=== PATIENT | female | born 1980 | race Caucasian/White ===

== ENCOUNTER 2016-09-02 10:33 | Inpatient (IN) | payer OTHER ==
[~2016-09-02] VITALS: Ht 139.7 cm; Wt 41.0 kg
[~2016-09-02 10:33] MED LIST: RISPERDAL0.5 M1 PO
--- NOTE | 2016-09-02 10:44 | NUR ---
PT TO TRIAGE, STATES THAT SHE HAS BEEN HEARING VOICES FOR MONTHS, WAS DIAGNOSED BIPOLAR AND DOES NOT TAKE ANY MEDS. SPOUSE STATES THAT SHE FLUSHED THEM DOWN THE TOILET AFTER SHE WENT HOME WITH THEM. PT COMPLAINS THAT THE VOICES ARE TELLING HER GOOD AND BAD STUFF, DENIES SI OR HI.
--- NOTE | 2016-09-02 10:59 | NUR ---
SECURITY WANDED PT AND CHANGED INTO BLUE SCRUBS 1 BELONGING BAG LOCKED IN CLOSET NO VALUABLES GIVEN TO PT'S URINE SPECIMEN OBTAINED
--- NOTE | 2016-09-02 11:12 | NUR ---
PT SITTING IN ROOM WITH FAMILY PRESENT CALM, COOPERATIVE. RAPID SPEECH NOTED. URINE SAMPLE SENT. PT AWARE SHE IS WAITING FOR EVAL.
--- NOTE | 2016-09-02 11:14 | ED PSYCHIATRIC COMPLAINT ---
History of Present Illness General Chief Complaint: Psychiatric Related Complaint Stated Complaint: HEARING VOICES,MATIAS,TROUBLE SLEEPING,BODY PAIN Source: patient Exam Limitations: no limitations Vital Signs & Intake/Output Vital Signs & Intake/Output Vital Signs Date Time Temp Pulse Resp B/P Pulse O2 O2 Flow FiO2 Ox Delivery Rate 09/02 1940 97.3 69 130/72 09/02 1732 97.4 71 104/60 09/02 1628 97.3 64 18 110/70 100 Room Air 09/02 1322 97.5 64 18 113/67 100 Room Air 09/02 1114 99 Room Air 09/02 1039 98.2 94 18 123/78 98 Room Air Allergies Coded Allergies: No Known Allergies (10/16/15) Reconcile Medications Risperidone (Risperdal) 0.5 MG TABLET 1 TAB PO BID schizoaffective disorder Triage Note: PT TO TRIAGE, STATES THAT SHE HAS BEEN HEARING VOICES FOR MONTHS, WAS DIAGNOSED BIPOLAR AND DOES NOT TAKE ANY MEDS. SPOUSE STATES THAT SHE FLUSHED THEM DOWN THE TOILET AFTER SHE WENT HOME WITH THEM. PT COMPLAINS THAT THE VOICES ARE TELLING HER GOOD AND BAD STUFF, DENIES SI OR HI. Triage Nurses Notes Reviewed? yes Onset: Gradual Duration: worse persistent since (1 month) Timing: recent history Severity: severe : No Patient currently breastfeeds: No HPI: Patient is a 36-year-old female presenting to the emergency department with family member chief complaint of hallucinations, anxiety that then worsening over the past several weeks. Per family member this has been going on for the past several months. Patient decided not to take her bipolar medications when she was prescribed L and upper abdominal toilet. Patient denies any suicidal or homicidal ideation. She reports that her hallucinations are both visual and auditory. They do not tell her anything specific . (ERICKA KINNEY) Past History Travel History Traveled to [place] past 21 day No Medical History Any Pertinent Medical History? see below for history Neurological: seizure EENT: NONE Cardiovascular: NONE Respiratory: NONE Gastrointestinal: GERD Hepatic: NONE Renal: NONE Musculoskeletal: NONE Psychiatric: bipolar disease Endocrine: NONE Blood Disorders: NONE Cancer(s): NONE Surgical History Surgical History: Psychosocial History Who do you live with Family What is your primary language Mongolian Tobacco Use: Never used ETOH Use: denies use Illicit Drug Use: denies illicit drug use Family History Hx Contributory? No (ERICKA KINNEY) Review of Systems Review of Systems Constitutional: Reports: no symptoms. Comments Review of systems: See HPI, All other systems negative. Constitutional, no chills fever or weight loss HEENT: No visual changes no sore throat no congestion Cardiovascular: No chest pain Skin, no jaundice no rashes Respiratory: No dyspnea cough sputum or hemoptysis GI: No nausea no vomiting : No dysuria No hematuria Muscle skeletal: no back pain, no neck pain, Neurologic: No numbness Psych: pos stress, anxiety Heme/endocrine: No bruising no bleeding no polyuria or polydipsia Immunology: No splenectomy or history of AIDS (ERICKA KINNEY) Physical Exam Physical Exam General Appearance: well developed/nourished, no apparent distress, alert, awake , comfortable Neurological/Psychiatric: no motor/sensory deficits, oriented x 3 Comments: Well-developed well-nourished person in no acute distress HEENT: Pupils equally round and reactive to light and accommodation. Nose is atraumatic. Neck: normal inspection Back: Nontender Cardiovascular: Regular rate and rhythms no murmurs rubs or gallops, normal JVP Respiratory:. No respiratory distress Extremity: No edema Neuro: Alert oriented x3 Skin: No appreciable rash on exposed skin, skin is warm and dry. Psych: Hallucinating SAD PERSONS Done? patient not suicidal (ERICKA KINNEY) Progress Differential Diagnosis: electrolyte abnormality Plan of Care: Orders Procedure Date/time Status Regular Diet 09/02 D Active Vital Signs 09/02 1732 Active Inpt Psych Teach/Educate 09/02 1732 Active Nutritional Intake, Monitor 09/02 1732 Active Inpt Psych Auricular Acupunctu 09/02 1732 Active Admit to inpatient 09/02 1718 Active Add-on Test (ER Only) 09/02 1656 Active Lab Add-on Test 09/02 1555 Active Patient Data - inpatient psych 09/02 1551 Active Admit to inpatient psych 09/02 1551 Active LIPID PANEL 09/02 1150 Active GLYCOSYLATED HGB 09/02 1150 Active Intake & Output 09/02 1113 Complete TSH REFLEX 09/02 1113 Active COMPREHENSIVE METABOLIC PANEL 09/02 1113 Active CBC WITHOUT DIFFERENTIAL 09/02 1113 Complete ED CRISIS PSYCH CONSULT 09/02 1113 Active CULTURE,URINE 09/02 1108 Active URINE 09/02 1104 Complete URINE DRUG SCREEN FOR ER ONLY 09/02 1104 Complete URINALYSIS 09/02 1104 Complete Vital Signs 09/02 UNK Complete Nursing Misc 09/02 UNK Active Alternative Nursing Therapy 09/02 UNK Active Activity/Ambulation 09/02 UNK Active Current Medications Sig/Rancho Start time Last Medication Dose Stop Time Status Admin Acetaminophen 650 MG Q6P PRN 09/02 1600 AC (Tylenol) Al Hydroxide/Mg 30 ML Q4-6 PRN PRN 09/02 1600 AC Hydroxide (Maalox Plus) Gabapentin 300 MG Q6P PRN 09/02 1600 AC (Neurontin) Magnesium Hydroxide 30 ML AT BEDTIME PRN 09/02 1600 AC (Milk Of Magnesia) Trazodone HCl 50 MG AT BEDTIME NEED.. 09/02 1600 AC (Desyrel) Laboratory Tests 09/02/16 1326: CBC w Diff NO MAN DIFF REQ, RBC 3.87 L, MCV 83.4, MCH 27.3, RDW 13.9, MPV 8.3, Gran % 53.2, Lymphocytes % 34.1, Monocytes % 10.0 H, Eosinophils % 2.0, Basophils % 0.7, Absolute Granulocytes 2.0, Absolute Lymphocytes 1.3, Absolute Monocytes 0.4, Absolute Eosinophils 0.1, Absolute Basophils 0, PUBS MCHC 32.7 L 09/02/16 1150: Anion Gap 14, Estimated GFR > 60, BUN/Creatinine Ratio 15.7, Glucose 67, Hemoglobin A1c Pending, Calcium 9.3, Total Bilirubin 0.5, AST 20, ALT 17, Alkaline Phosphatase 41, Total Protein 7.5, Albumin 4.5, Globulin 3.0, Albumin/ Globulin Ratio 1.5, Triglycerides 41, Cholesterol 162, LDL Cholesterol, Calc 90, HDL Cholesterol 64 H, Cholesterol/HDL Ratio 3, TSH &T3 &Free T4 Intrp 1.040 09/02/16 1108: Urine Opiates Screen < 100.00, Methadone Screen 51, Barbiturate Screen < 60, Ur Phencyclidine Scrn < 6.00, Amphetamines Screen < 100, U Benzodiazepines Scrn < 85, Urine Cocaine Screen < 50, Urine Cannabis Screen < 5.00, Urine Color YEL, Urine Clarity HAZY H, Urine pH 6.0, Ur Specific [place] >= 1.030, Urine Protein NEG, Urine Ketones NEG, Urine Nitrite POS H, Urine Bilirubin NEG, Urine Urobilinogen 0.2, Ur Leukocyte Esterase NEG, Ur Microscopic SEDIMENT EXAMINED, Urine RBC 3-5, Urine WBC 1-3 H, Ur Epithelial Cells MOD H, Urine Crystals 3+ CA OX H, Urine Bacteria MANY H, Urine Mucus MANY H, Urine Hemoglobin MOD H, Urine Glucose NEG, Urine Test NEGATIVE Microbiology 09/02 1555 URINE ROUT: Urine Culture - CAN Cancelled: DUPLICATE ORDER 09/02 1108 URINE ROUT: Urine Culture - RECD Comments: Patient will be admitted for psychosis. (ERICKA KINNEY) Departure Departure Time of Disposition: 1605 Disposition: STILL A PATIENT Condition: Stable Clinical Impression Primary Impression: Psychotic disorder Qualifiers: Psychosis type: unspecified psychosis type Qualified Code: F29 - Unspecified psychosis not due to a substance or known physiological condition Referrals: PATIENT HAS NO PRIMARY CARE DR (PCP/Family) Departure Forms: Customer Survey General Discharge Information Psych Admission Note Psychiatric Admission: I have seen and evaluated MARCELLO COELLO. I have also reviewed all the pertinent lab results and diagnostic results. MARCELLO COELLO will be admitted to our inpatient Psychiatric unit for treatment and care. (ERICKA KINNEY) PA/BUCKLE ASSEMBLER Co-Sign Statement Statement: ED Attending supervision documentation- [X] I saw and evaluated the patient. I have also reviewed all the pertinent lab results and diagnostic results. I agree with the findings and the plan of care as documented in the PA's/BUCKLE ASSEMBLER's documentation. [] I have reviewed the ED Record and agree with the PA's/BUCKLE ASSEMBLER's documentation. [] Additions or exceptions (if any) to the PAs/BUCKLE ASSEMBLER's note and plan are summarized below: [] (MIKA BISHOP DO)
--- NOTE | 2016-09-02 11:56 | NUR ---
LAV AND SST SENT AT 1155
--- NOTE | 2016-09-02 12:01 | NUR ---
NORMAN SAMUELS AT BEDSIDE AT THIS TIME
--- NOTE | 2016-09-02 13:30 | NUR ---
LAV TOP REDRAWN AND SENT AT [id number]
[2016-09-02 13:41] LABS: ABSOLUTE BASOPHIL COUNT 0 /CUMM (0.0-0.2); ABSOLUTE EOSINOPHIL COUNT 0.1 /CUMM (0.0-0.7); ABSOLUTE LYMPH COUNT 1.3 /CUMM (1.2-3.4); ABSOLUTE MONOCYTE COUNT 0.4 /CUMM (0.10-0.60); BASOPHIL % 0.7 % (0.0-2.0); GRANULOCYTE % 53.2 % (42.2-75.2); HEMATOCRIT 32.3 % (37-47); MEAN CORPUSCULAR HGB 27.3 PG (27.0-31.0); MEAN CORPUSCULAR HGB CONC 32.7 G/DL (33.0-37.0); MEAN CORPUSCULAR VOLUME 83.4 FL (81.0-99.0); MEAN PLATELET VOLUME 8.3 FL (7.4-10.4); PLATELET COUNT 252 /CUMM (130-400); RBC DISTRIBUTION WIDTH 13.9 % (11.5-14.5); RED BLOOD CELL CT 3.87 /CUMM (4.20-5.40); WHITE BLOOD CELL COUNT 3.9 /CUMM (4.8-10.8)
--- NOTE | 2016-09-02 14:36 | NUR ---
RESTING WITH FAMILY AWAITING CRISIS
--- NOTE | 2016-09-02 15:55 | NUR ---
PHARMACY CALLED FOR RISPERIDONE ORDER, STATES THEY WILL HAVE IT READY SHORTLY
--- NOTE | 2016-09-02 16:28 | ED PSYCH CRISIS CONSULTATION ---
Crisis Consult Basic Assessment Date of Consult: 09/02/16 Responsible Person/Accompanied By: with her family Insurance Authorization: Insurance #1: Insurance name: ELIEZER Healy [employer]&A Phone number: Policy number: [id number] Group number: Authorization number: MARCELLO COCHRAN [id number] 1980 MARCELLO COCHRAN [id number] Pended Authorization # Client Authorization # Type of Request [id number] INITIAL ED Provider: Patient's ED Provider: ERICKA KINNEY Primary Care Physician: Patient's PCP: PATIENT HAS NO PRIMARY CARE DR PCP's Phone Number: Current Psychiatrist: None Chief Complaint: Psychiatric Related Complaint Patient's Quote: "Im hearing telepathic communications". Present Illness: Pt is a 36 year old female, she states about a year ago she began to hear voices , in fact she came to our ER, and was given a referral for IOP, she did not attend the appointment. Her offers she was at another hospital in [place] shortly after that, but it was unclear if she was admitted, although he states she was given medication and when she came home she flushed it down the toilet. Pt has not had any treatment since. She arrives today describing voices in her head, they are conflicted and making her "angry", she can have some eye contact but otherwise is preoccupied. She denies si/hi. She states she hears "telepathic communcations", and sees lights. She states this is distressing to her, and consumes a lot of her day. She has 3 children and has been 17 years, her and Mother are present and supportive. mentions she "is so quiet at home, and her head and back hurt often that she lays down". Pt denies drug and etoh history. Pt reports poor sleeping and eating habits. Pt is agreeable to inpatient level of care. Pt currently has no outpatient treaters and is not on medications. Patient's Address: [address] [place] [address] Other Phone Number: Who Do You Live With? Family Family/Informants Interviewed: Yadye her wants her inpatient and interested in how to help her maintain medications upon discharge. Allergies - Coded Allergies: No Known Allergies (10/16/15) Current Medications - Scheduled Medications Risperidone (Risperdal) 0.5 MG TABLET 1 TAB PO BID schizoaffective disorder # 10 TAB Prescribed by DYLON CORNELL MD on 10/17/15 Laboratory Results: Laboratory Tests 09/02/16 1326: CBC w Diff NO MAN DIFF REQ, RBC 3.87 L, MCV 83.4, MCH 27.3, RDW 13.9, MPV 8.3, Gran % 53.2, Lymphocytes % 34.1, Monocytes % 10.0 H, Eosinophils % 2.0, Basophils % 0.7, Absolute Granulocytes 2.0, Absolute Lymphocytes 1.3, Absolute Monocytes 0.4, Absolute Eosinophils 0.1, Absolute Basophils 0, PUBS MCHC 32.7 L 09/02/16 1150: Anion Gap 14, Estimated GFR > 60, BUN/Creatinine Ratio 15.7, Glucose 67, Hemoglobin A1c Pending, Calcium 9.3, Total Bilirubin 0.5, AST 20, ALT 17, Alkaline Phosphatase 41, Total Protein 7.5, Albumin 4.5, Globulin 3.0, Albumin/ Globulin Ratio 1.5, Triglycerides Pending, Cholesterol Pending, LDL Cholesterol, Calc Pending, HDL Cholesterol Pending, Cholesterol/HDL Ratio Pending, TSH &T3 & Free T4 Intrp 1.040 09/02/16 1108: Urine Opiates Screen < 100.00, Methadone Screen 51, Barbiturate Screen < 60, Ur Phencyclidine Scrn < 6.00, Amphetamines Screen < 100, U Benzodiazepines Scrn < 85, Urine Cocaine Screen < 50, Urine Cannabis Screen < 5.00, Urine Color YEL, Urine Clarity HAZY H, Urine pH 6.0, Ur Specific [place] >= 1.030, Urine Protein NEG, Urine Ketones NEG, Urine Nitrite POS H, Urine Bilirubin NEG, Urine Urobilinogen 0.2, Ur Leukocyte Esterase NEG, Ur Microscopic SEDIMENT EXAMINED, Urine RBC 3-5, Urine WBC 1-3 H, Ur Epithelial Cells MOD H, Urine Crystals 3+ CA OX H, Urine Bacteria MANY H, Urine Mucus MANY H, Urine Hemoglobin MOD H, Urine Glucose NEG, Urine Test NEGATIVE Microbiology 09/02 1555 URINE ROUT: Urine Culture - ORD Past History Past Medical History Neurological: seizure EENT: NONE Cardiovascular: NONE Respiratory: NONE Gastrointestinal: GERD Hepatic: NONE Renal: NONE Musculoskeletal: NONE Psychiatric: psychosis Endocrine: NONE Blood Disorders: NONE Cancer(s): NONE Past Surgical History Surgical History: Psychosocial History Strengths/Capabilities: no prior psych hx/ mother of 3/supportive family Psychiatric Treatment History Psych Treatment Psychiatric Treatment No Diagnosis by History: schizoaffective d/o Substance Use/Abuse History Drug Use/Abuse Substances Used/Abused No Substance Abuse Treatment Substance Abuse Treatment Past Substance Abuse [place] No Comments: Pt can not identify any levels of psychiatric levels of care she has participated in. Current Mental Status Mental Status Orientation: Person, Place, Situation Affect: Anxious, Variable Speech: Mumbled, Perseveration, Soft Neuro-vegetative: Appetite Decreased, Concentration Poor, Energy Decreased, Helpless, Loss of Interest, Sleep Disturbance Appearance Appearance- Dress/Hygiene: groomed, in hopsital attire. Behaviors Thought Process: Disorganized Thought Content: Auditory Hallucinations, Paranoid, Visual Hallucinations Memory: WNL Insight: Poor SI/HI Risk Assessment Past Suicidal Ideation/Attempts No Current Suicidal Ideation/Att No Past Homicidal Ideation/Att: No Current Homicidal Ideation/Attempts No Degree of Intent: None Risk Factors: high anxiety/distress Lethality Ratin (mild) PTSD Checklist PTSD Done? patient declined ED Management Sitter: Yes Restraints: No DSM5/PS Stressors/Medical Prob Diagnosis' (DSM 5, Stressors, Medical): F23 Brief Psychosis D/O R/O Schizoaffective D/O Current GAF: 24 Departure Disposition Psych Medical Clearance Date: 09/02/16 Medically Cleared at: 1530 Time Started: 1530 Time Ended: 1630 Psychiatrist Consulted: Trell Mercado MD Date Disposition Established: 09/02/16 Time Disposition Established: 1641 Plan for Disposition - Modality: Inpatient Psychiatry Facility: [facility] Follow-up Appt Date: 09/02/16 Follow-Up Appt Time: 164 Contact: [facility] Telephone: [phone] Rationale for Disposition: Consulted with Dr. Mercado, pt in distress and hearing AH. Wants to start medication and needs further support. Pt to be admitted to [facility]. Type of IP Admission: Voluntary Referrals PATIENT HAS NO PRIMARY CARE DR (PCP/Family)
--- NOTE | 2016-09-02 16:46 | IP CRISIS DIAG ASSESS PSYCH ---
Diagnostic Assessment Basic Assessment Insurance Authorization: Insurance #1: Insurance name: ELIEZER Healy [employer] [facility] Phone number: Policy number: [id number] Group number: Authorization number: MARCELLO COCHRAN [id number] 1980 MARCELLO COCHRAN [id number] Pended Authorization # Client Authorization # Type of Request [id number] INITIAL Primary Care Physician: Patient's PCP: PATIENT HAS NO PRIMARY CARE DR PCP's Phone Number: Patient's Quote: "Im hearing telepathic communications". Present Illness: Pt is a 36 year old female, she states about a year ago she began to hear voices , in fact she came to our ER, and was given a referral for IOP, she did not attend the appointment. Her offers she was at another hospital in [place] shortly after that, but it was unclear if she was admitted, although he states she was given medication and when she came home she flushed it down the toilet. Pt has not had any treatment since. She arrives today describing voices in her head, they are conflicted and making her "angry", she can have some eye contact but otherwise is preoccupied. She denies si/hi. She states she hears "telepathic communcations", and sees lights. She states this is distressing to her, and consumes a lot of her day. She has 3 children and has been 17 years, her and Mother are present and supportive. mentions she "is so quiet at home, and her head and back hurt often that she lays down". Pt denies drug and etoh history. Pt reports poor sleeping and eating habits. Pt is agreeable to inpatient level of care. Pt currently has no outpatient treaters and is not on medications. Patient's Address: [address] [place] [address] Other Phone Number: Who Do You Live With? Family Feel Safe Where You Live? Yes Feel Safe in Your Relationship Yes Marital Status: Do You Have Children? Yes Ages? 15,14,and 9 Primary Language? Mongolian Language(s) Spoken At Home: Mongolian Family/Informants Interviewed: Piter her wants her inpatient and interested in how to help her maintain medications upon discharge. Allergies - Coded Allergies: No Known Allergies (10/16/15) Current Medications - Scheduled Medications Risperidone (Risperdal) 0.5 MG TABLET 1 TAB PO BID schizoaffective disorder # 10 TAB Prescribed by DYLON CORNELL MD on 10/17/15 Consequences of Psych Med Use: pt is not med compliant, and has no hx with medications Lab Results: Laboratory Tests 09/02/16 1326: CBC w Diff NO MAN DIFF REQ, RBC 3.87 L, MCV 83.4, MCH 27.3, RDW 13.9, MPV 8.3, Gran % 53.2, Lymphocytes % 34.1, Monocytes % 10.0 H, Eosinophils % 2.0, Basophils % 0.7, Absolute Granulocytes 2.0, Absolute Lymphocytes 1.3, Absolute Monocytes 0.4, Absolute Eosinophils 0.1, Absolute Basophils 0, PUBS MCHC 32.7 L 09/02/16 1150: Anion Gap 14, Estimated GFR > 60, BUN/Creatinine Ratio 15.7, Glucose 67, Hemoglobin A1c Pending, Calcium 9.3, Total Bilirubin 0.5, AST 20, ALT 17, Alkaline Phosphatase 41, Total Protein 7.5, Albumin 4.5, Globulin 3.0, Albumin/ Globulin Ratio 1.5, Triglycerides 41, Cholesterol 162, LDL Cholesterol, Calc 90, HDL Cholesterol 64 H, Cholesterol/HDL Ratio 3, TSH &T3 &Free T4 Intrp 1.040 09/02/16 1108: Urine Opiates Screen < 100.00, Methadone Screen 51, Barbiturate Screen < 60, Ur Phencyclidine Scrn < 6.00, Amphetamines Screen < 100, U Benzodiazepines Scrn < 85, Urine Cocaine Screen < 50, Urine Cannabis Screen < 5.00, Urine Color YEL, Urine Clarity HAZY H, Urine pH 6.0, Ur Specific [place] >= 1.030, Urine Protein NEG, Urine Ketones NEG, Urine Nitrite POS H, Urine Bilirubin NEG, Urine Urobilinogen 0.2, Ur Leukocyte Esterase NEG, Ur Microscopic SEDIMENT EXAMINED, Urine RBC 3-5, Urine WBC 1-3 H, Ur Epithelial Cells MOD H, Urine Crystals 3+ CA OX H, Urine Bacteria MANY H, Urine Mucus MANY H, Urine Hemoglobin MOD H, Urine Glucose NEG, Urine Test NEGATIVE Microbiology 09/02 1555 URINE ROUT: Urine Culture - ORD Toxicology Screen Completed? Yes Results: negative Symptoms of Use: n/a Past History Past Surgical History Surgical History non-contributory Abuse/Trauma History Trauma History/Current Trauma: Denies Legal History Current Legal Status: none Have you ever been arrested? No Psychosocial History Strengths/Capabilities: no prior psych hx/ mother of 3/supportive family Psychiatric Treatment History Psych Treatment Psychiatric Treatment No Diagnosis by History: schizoaffective d/o Risk Factors: high anxiety/distress Substance Use/Abuse History Drug Use/Abuse minimum 12mo Hx Substances Used/Abused No Substance Abuse Treatment Substance Abuse Treatment Past Substance Abuse [place] No Sexual History Sexually Active No # of partners 1 Sexual Orientation Heterosexual Use of Protection No Sexual Concerns: not currently sexually active Education History Highest Level of Education: did not complete HS Preferred Learning Style: experiential Current Mental Status Mental Status Orientation: Person, Place, Situation Affect: Anxious, Variable Speech: Mumbled, Perseveration, Soft Neuro-vegetative: Appetite Decreased, Concentration Poor, Energy Decreased, Helpless, Loss of Interest, Sleep Disturbance Appearance Appearance- Dress/Hygiene: groomed, in hopsital attire. Behaviors Thought Process: Disorganized Thought Content: Auditory Hallucinations, Paranoid, Visual Hallucinations Memory: WNL Insight: Poor SI/HI Risk Assessment - Minimum 6mo History- Past Suicidal Ideation/Attempts No Current Suicidal Ideation/Att No Past Homicidal Ideation/Att: No Current Homicidal Ideation/Attempts No Degree of Intent: None Risk Factors: high anxiety/distress Lethality Ratin (mild) Needs/Init [place] Plan/Goals: Med manangement inpatient milieu AUDIT-C Questionnaire: AUDIT-C Questionnaire: Response Value ETOH use in the past year Never 0 # drinks typical/day Doesn't Drink 0 6 or > drinks per occasion Never 0 Total 0 DSM5/PS Stressors/Medical Prob Diagnosis' (DSM 5, Stressors, Medical): F23 Brief Psychosis D/O R/O Schizoaffective D/O Current GAF: 24
--- NOTE | 2016-09-02 16:46 | SOCIAL WORKER SOCIAL HX PSYCH ---
Social History Basic Assessment Insurance Authorization: Insurance #1: Insurance name: ELIEZER Healy Lem[employer] Phone number: Policy number: [id number] Group number: Authorization number: Curr Source of Income/Entitlements: Medicaid Primary Care Physician: Patient's PCP: PATIENT HAS NO PRIMARY CARE DR PCP's Phone Number: Primary Language? Slovenian Language(s) Spoken At Home: Slovenian, [place] Living Situation Rents or Owns Home? rents Feel Safe Where You Are Living Yes Feel Safe in Relationships? Yes Comments: feels safe, but is not functioning very well. Allergies - Coded Allergies: No Known Allergies (10/16/15) Current Medications - Scheduled Medications Risperidone (Risperdal) 0.5 MG TABLET 1 TAB PO BID schizoaffective disorder # 10 TAB Prescribed by DYLON CORNELL MD on 10/17/15 Last Taken: At an unknown date and time Consequences of Psych Med Use: n/a Past History Past Medical History Neurological: seizure EENT: NONE Cardiovascular: NONE Respiratory: NONE Gastrointestinal: GERD Hepatic: NONE Renal: NONE Musculoskeletal: NONE Psychiatric: psychosis Endocrine: NONE Blood Disorders: NONE Cancer(s): NONE Past Surgical History Surgical History: /Family History Place/Country of Origin: [facility], moved to at age of 14, raised in [facility], and came to [place] a few months ago. Childhood Family Constellation: Parents 2 brothers 3 sisters Primary Childhood Caretakers: father, mother Family Life During Childhood: good, normal DCF Involvement? No Mother's Age (Current/): 65 Relationship w/Mother: close Father's Age (Current/): 66 Relationship w/Father: good normal Any Sibling(s)? Yes Sibling's Gender(s)/Age(s): male Sibling 1:, male Sibling 2:, female Sibling 3:, female Sibling 4:, female Sibling 5: Relationship w/Sibling(s): good, pt does not elaborate Relationship w/Friends: denies having friendships Family Psych/Sub Abuse/Add Hx: drug of choice (denies) Number of Pregnancies: 3 Number of Miscarriages: 0 Number of Abortions: 0 Abuse/Trauma History Trauma History/Current Trauma: Denies Legal History Legal Guardian/Address/Phone: herself Current Legal Status: none Pending Court Dates: n/a Number of Arrests: 0 Hx of Juvenile Legal Charges? No Hx of Adult Legal Charges? No Psychosocial History Primary Support System: , mother Strengths/Capabilities: no prior psych hx/ mother of 3/supportive family Weaknesses: has not complied with tx thus far, may be scared and unknowledgable Last Physical: unknown History of Seizures? No History of Blackouts? Yes Last Blackout: unknown ADL Limitations: denies [place]/Social/Peer Relations limited, pt has family involvment and isolates often Meaningful Activities: being with kids Childhood Mormonism: no protestant stated Current Catholic Affiliation: no protestant stated Is Spirituality Important to You? unknown Patient's Ethnicity: [place] Cultural/Ethnic Issues: denies Are There Developmental Issues? No Milestones Achieved: fine motor, gross motor Psychiatric Treatment History Psych Treatment Inpatient Treatment No Precipitating Factors: ah Current Federal Court Of Appeals Law Clerk: none Treatment of Prior Episodes: 0 Diagnosis: schizoaffective d/o Psychodynamic Issues: pt isolates and has a supportive family, they be tentative to trusting this process as it is new to them Risk Factors: high anxiety/distress Substance Use/Abuse History Drug Use/Abuse Substance Used/Abused No History Explain: no drug/etoh hx Explain: no drug/etoh hx Have You Ever Attended AA? No Do You Attend AA Currently? No Do You Have a Sponsor? 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 No Current Mental Status Mental Status Affect: Anxious, Variable Speech: Mumbled, Perseveration, Soft Neuro-vegetative: Appetite Decreased, Concentration Poor, Energy Decreased, Helpless, Loss of Interest, Sleep Disturbance Appearance Appearance- Dress/Hygiene: groomed, in hopsital attire. Behaviors Thought Process: Disorganized Thought Content: Auditory Hallucinations, Paranoid, Visual Hallucinations Memory: WNL Insight: Poor SI/HI Risk Assessment Past Suicidal Ideation/Attempts No Current Suicidal Ideation/Att No Past Homicidal Ideation/Att: No Current Homicidal Ideation/Attempts No Degree of Intent: None Lethality Ratin (mild) - Conclusion and Recommendations for treatment - and discharge planning
--- NOTE | 2016-09-02 17:17 | NUR ---
REPORT CALLED TO KAI AT [facility], DISTRIBUTION CALLED, SITTERS INFORMED OF UPDATE, ONE OF THEM WILL ESCORT DISTRIBUTION AND SECURITY TO [place]
[2016-09-02 17:32] VITALS: BP 104/60
--- NOTE | 2016-09-02 17:53 | NUR ---
Patient admitted from ED. Patient calm and coherent with admission assessment. Patient currently denies SI/HI. Patient avoided eye contact at times during assessment. Patient is a poor and vague historian. PAtient utox + for methadone, patient denies taking on methadone or methadone maintenance Patient family requested to stay night, orient patient and family to visiting hours for the unit. Patient reports skin clean dry and intact. Patient is endorsing AH, but not currently. Patient says it happens at times. Patient reports looking forward to help. Looking forward assisting Zandra with mental health.
[2016-09-02 19:40] VITALS: BP 130/72
--- NOTE | 2016-09-03 06:27 | NUR ---
PATIENT SLEPT ALL NIGHT.
[2016-09-03 07:53] VITALS: BP 101/69
--- NOTE | 2016-09-03 10:52 | CPS MD/APRN INITIAL ASSE PSYCH ---
Psychiatric Admission [employer]'s Note Reviewed: Yes Patient Seen and Examined: Yes Identifying Information: Patient is a 36-year old Indian female. Chief Complaint: "I hear voices." Reaction to Hospitalization: "I don't need to be here, but I do want help with the voices" History of Present Illness Onset of Illness: The patient is a 36-year old , Indian, female with an unclear past psychiatric history. She reported hearing auditory hallucinations of telepathic voices approximately 1 year ago when she first presented to ED (10/15/16) for disorientation/auditory hallucinations, and was provided with a referral to [facility] which she didn't attend. Per Crisis collateral, the patient's reported that she had been to another hospital in [place], [place] shortly after then. It was unclear if the patient was admitted to inpatient psychiatry versus ED. She was provided with medication post-discharge which she flushed down the toilet. Prior to today's encounter the patient received Risperdal 1mg last evening and Risperdal 1mg this morning. She appeared sedated, and multiple times was observed with her eyes shut dosing off. She answered direct questions with frequent prompting. Unclear if there was thought blocking present versus psychomotor retardation from newly introduced Risperdal. The patient denied a prior history of suicidal ideation or suicide attempts. She denied a prior history of homicidal ideation. She reported a history of hearing vague voices (non-command in nature) and seeing lights. She could not describe the frequency of hallucinations. She was unable to describe if she hears 1 or more voices, or if male or female. She reported last hearing voice(s) last evening before receiving Risperdal at . She denied VH and AH this morning, since receiving Risperdal doses. She reported that prior to present hospitalization she had very low energy due to the voice(s) "draining all of the energy from me." She reported increased sleep and a decreased appetite. She denied acute symptoms of depression and reported anxiety secondary to AVH. She denied associated symptoms of chest pain or SOB from anxiety. She also reported somatic symptoms of headaches and back pain, but denied formal diagnoses of headaches or chronic pain. Circumstances Leading to Admission: Not engaged in outpatient psychiatric treatment; prior medication nonadherence; ? psychosocial stressors. Problem(s) Justifying Need for Admission: + Auditory and visual hallucinations; decreased appetite and increased sleep. Past Psychiatric History Past Diagnosis(es)- if any: Brief Psychosis D/O (F23) R/O Schizoaffective D/O Past Precipitating Factors- if any: Unknown - patient did not elaborate. - Include inpatient and outpatient treatment Treatment History: -? inpatient psych hospitalization versus ED hospitalization in [place], [place] ( 2015) - ED (10/2015) - disorientation/AH -Referred to IOP following 10/2015 ED visit however patient did not f/u. -No current outpatient psychiatric treatment History of Suicide Attempts or Gestures Pt denied. Substance Abuse History: Pt denied use of alcohol, illicits, and cigarettes. Allergies: Coded Allergies: No Known Allergies (10/16/15) Home Med List: OTC sleep aid (name unknown by pt) - Include any medical condition(s) that may - impact the patient's recovery/remission Past Medical History: Pt denied. Of note, in ED medical history - "seizures" were listed. Patient denied a history of Szs. Past History Medical History Neurological: seizure EENT: NONE Cardiovascular: NONE Respiratory: NONE Gastrointestinal: GERD Hepatic: NONE Renal: NONE Musculoskeletal: NONE Psychiatric: psychosis Endocrine: NONE Blood Disorders: NONE Cancer(s): NONE Surgical History Surgical History: non-contributory Psychiatric Family/Social Hx Family History Psychiatric Illness: Pt denied. Substance Use: Pt denied. Suicides: Pt denied. Other Family History: Patient is and has 3 children. Social History Living Situation: Patient lives with and 3 children. Significant Relationships (family/friends): Education: Did not graduate HS or obtain GED. Could not state grade she last attended. Vocation/Occupation: Unemployed. Legal: Pt denied. Other Social History: Patient moved from [facility] to [place], [place] at 14 years old. Has lived in [place] for approximately greater than 1 year with her and three children. Healthly Behaviors Screening Tobacco Screening Tobacco Use from ED Docu: Never used - If tobacco counseling indicated - the following topics are required. - #1 Recognizing dangerous situations. - #2 Coping Skills. - #3 Basic information about quitting. Status of Tobacco Cessation Counseling: N/A B/C NO TOB USE Cessation Med Status: No Tobacco Use last 30d Alcohol Screening - ETOH screen POS if BAL >=80 or Audit-C>= M4/F3 Audit-C Score from Diag Assess: 0 Blood Alcohol Level: BAL not tested in ED. Alcohol Use Screening Results: Neg per Audit C &/or BAL - If ETOH counseling indicated - the following topics are required. - #1 Express concern about the patient's - drinking at unhealthy levels, include informing - of national norms for moderate drinking: - men <= 14 drinks/week, max 4 drinks/occasion - women <= 7 drinks/week, max 3 drinks/occasion - #2 Providing feedback, including linking alcohol to - negative physical effects (liver injury, hypertension) - negative emotional effects (relationship problems and - depression) - negative occupational consequences (reduced work - performance) - #3 Advising the patient to abstain from alcohol or - to drink below national norms for moderate drinking - (as listed above). Status of ETOH Use Counseling: N/A B/C NO ETOH Use Metabolic Screening - Screen if on a Neuroleptic Medication - Metabolic screening should include: - Blood Pressure, BMI, Glucose or Hgb A1c, & a - Lipid profile from within the past 365 days. Metabolic Screening () Not Applicable, patient not on a neuroleptic. OR ([X]) Patient on a neuroleptic(s) . Enter below results for Glucose or Hemoglobin A1C, and lipid panel if obtained during the last 365 days. BMI: 21.000 Blood Pressure: 101/69 Laboratory Results (If applicable): Lab Cholesterol 162 MG/DL 09/02/16 1150 Cholesterol/HDL Ratio 3 % 09/02/16 1150 Glucose 67 mg/dL 09/02/16 1150 HDL Cholesterol 64 mg/dL H 09/02/16 1150 LDL Cholesterol, Calc 90 mg/dL 09/02/16 1150 Triglycerides 41 mg/dL 09/02/16 1150 Exam and Plan Mental Status Examination Ambulation Status: Steady and idependent Appearance: 36 y/o Indian female, appears stated age. Petite stature, well-groomed. Dressed in blue paper scrub top and bottoms. Attitude towards examiner: Guarded, withdrawn, polite. Psychomotor activity: Psychomotor retardation (likely slowed from introduction of Risperdal). Behavior: Slowed, occasionally dosing off during interview. Quality of speech: Soft-spoken. Affect: Constricted Mood: "Alright." She denied acute symptoms of depression. Reported anxiety at baseline secondary to AH and VH. Denied feeling hopeless, helpless, worthless, guilty. Suicidal Ideation: Pt denied. Homicidal Ideation: Pt denied. Hallucinations: Pt denied at present. Last reported AH was last night prior to taking Risperdal at . Reported last VH of lights was in ED. Paranoid/Delusional Material: None overtly evident. Will require further assessment, and patient to be more alert to adequately assess. Difficulties with thought organization: Patient slowed, unclear if medication induced versus ? thought blocking. Insight: Fair Judgment: Limited Orientation: O x to person, place and time. Cognition: Grossly intact, however slowed. Memory Function: Grossly intact. Estimate of intellectual functioning: Likely average. Assets/Strengths Patient Identified Assets/Strengths: Supportive family, enjoys spending time with family. Showed fair insight into needing treatment. Impression/Plan Impression and Plan: Patient is a 36-year old Indian, female who is a mother of three who presented for the second time to ED with symptoms of AH and VH. Causes of symptoms are unclear, reported AH and VH have been ongoing for approx. 1 year, with no prior onset before then. She denied a history of trauma/physical, sexual , verbal, emotional abuse. Was a poor historian and unable to clarify if prior hospital visit in [place], [place] was for inpatient psychiatry versus ED psychiatry. Had been nonadherent with discharge medications at that time. Tolerating Risperdal 1mg BID thus far, denied acute SEs, however, appeared quite sedated during initial encounter which ? is related to Risperdal given history of being medication naive. Will decrease Risperdal from 1mg QAM to 0.5mg QAM and continue Risperdal 1mg QHS for AH/VH. Presently patient denied acute symptoms of anxiety and depression. Deneid current SI/HI/AH/VH. Will monitor patient on unit for safety, suicidal ideation, mood and psychosis. Will continue medications as indicated above. - Include all active medical diagnosis that require tx DSM 5 Diagnosis(es): Unspecified psychosis (F28) - Initial Tx Plan for Active Psych & Medical Conditions Treatment Plan: 1. Monitor the patient on unit for safety, suicidal ideation, mood and psychosis. 2. Obtain collateral from patient's family. 3. Decrease Risperdal from 1mg QAM to 0.5mg QAM d/t sedation. Continue Risperdal 1mg QHS for AH/VH. 4. Once psychiatric symptoms are clinically stable, refer to an appropriate level of outpatient psychiatric care. 5. Admission H&P per personal injury specialist team. - Factors that would help patient function - in a less restrictive setting. Factors: -Alleviation/stabilization of psychosis. - medication adherence. - outpatient treatment adherence.
--- NOTE | 2016-09-03 11:52 | SOCIAL WORKER PROG NOTE PSYCH ---
Social Work Progress Note Progress Note Pt is suspicious, and cooperative. This is a new environment for her. She was able to complete social, answering questions briefly. Pt reports the voices have lessen since medication started last night and this am.
[2016-09-03 12:17] VITALS: BP 108/68
--- NOTE | 2016-09-03 12:54 | NUR ---
Dr. Christina on unit for H&P, no further orders at this time.
--- NOTE | 2016-09-03 13:49 | NUR ---
PT WAS ON AND OFF IN THE MILIEU TODAY. SHE DID NOT EAT BREAKFAST OR LUNCH, STATING THAT SHE WAS NOT HUNGRY. PT WAS ENCOURAGED TO HAVE AT LEAST CRACKERS BUT PT DECLINED. SHE CAME TO SOME OF THE GROUPS TODAY, AND PARTICIPATED. SHE HAD SOME INTERACTIONS TODAY, BUT REALLY WANTS TO DISCHARGE. IN THE MILIEU PT HAS BEEN CALM AND COOPERATIVE, AND DENIES THOUGHTS TO HURT HERSELF WHEN ASKED.
--- NOTE | 2016-09-03 14:39 | History & Physical ---
General Information and HPI MD Statement: I have seen and personally examined MARCELLO COELLO and documented this H&P. The patient is a 36 year old F who presented with a patient stated chief complaint of "hearing voiced", insomnia, body pain. Source of Information: patient Exam Limitations: no limitations History of Present Illness: The patient is a 36 yo female with h/o schizoaffective disorder/bipolar who presented in the ED with c/o "hearing voices" and difficulty sleeping. She had been given medication as an outpatient, however had flushed it down the toilet per psych notes in ED. She was admitted to [facility]/Psychiatry for further evaluation. At the time of my exam the patient had no physical complaints. No chest pain, dyspnea, abd pain, etc. 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 NO SIGNIFICANT ILLNESSES IN FAMILY PER PATIENT). Psychosocial History Smoking Status: Never Smoked ETOH Use: denies use Illicit Drug Use: denies illicit drug use Functional Ability Ambulation: independent Employment History Employment Unemployed Review of Systems Review of Systems Constitutional: Denies: no symptoms. EENTM: Denies: no symptoms. Cardiovascular: Denies: no symptoms. Respiratory: Denies: no symptoms. GI: Denies: no symptoms. Genitourinary: Denies: no symptoms. Musculoskeletal: Denies: no symptoms. Skin: Denies: no symptoms. Neurological/Psychological: Denies: no symptoms. Hematologic/Endocrine: Denies: no symptoms. Immunologic/Allergic: Denies: no symptoms. Exam & Diagnostic Data Last 24 Hrs of Vital Signs/I&O Vital Signs Date Time Temp Pulse Resp B/P Pulse O2 O2 Flow FiO2 Ox Delivery Rate 09/03 1217 73 108/68 09/03 0753 96.8 63 101/69 09/02 1940 97.3 69 130/72 09/02 1732 97.4 71 104/60 03 1628 97.3 64 18 110/70 100 Room Air Intake & Output 09/03 1600 09/03 0800 09/03 0000 Intake Total Output Total Balance Patient 40.993 kg Weight Physical Exam General Appearance Alert, Oriented X3, Cooperative, No Acute Distress Skin No Rashes, No Breakdown, No Significant Lesion HEENT Atraumatic, PERRLA, EOMI, Mucous Membr. moist/pink Neck Supple, No JVD, No thryomegaly, +2 Carotid Pulse wo Bruit, No LAD Cardiovascular Regular Rate, Normal S1, Normal S2, No Murmurs Lungs Clear to Auscultation, Normal Air Movement Abdomen Normal Bowel Sounds, Soft, No Tenderness, No Hepatospenomegaly, No Masses Neurological Exam Findings: Normal Gait, Normal Speech, Strength at 5/5 X4 Ext, Normal Tone, Sensation Intact, Cranial Nerves 3-12 NL, Reflexes 2+ Cranial Nerves II through XII: INTACT Extremities No Clubbing, No Cyanosis, No Edema, Normal Pulses, No Tenderness/ Swelling Vascular Normal Pulses, Pulses Symmetrical Last 24 Hrs of Labs/Yemi: Microbiology 09/02 1555 URINE ROUT: Urine Culture - CAN Cancelled: DUPLICATE ORDER Assessment/Plan Assessment: #Psychosis- hearing voices per patient. Does have h/o schizoaffective/bipolar disorder. Plan: Admit to [facility]/Psychiatry for evaluation. Meds as per psychiatry. #GERD- no current symptoms. On no meds chronically. Plan: Will observe off of medications. As Ranked By This Provider Problem List: 1. Delirium 2. Psychotic disorder Qualifiers Psychosis type: unspecified psychosis type Qualified Code: F29 - Unspecified psychosis not due to a substance or known physiological condition 3. GERD (gastroesophageal reflux disease) Miscellaneous Miscellaneous Documentation Attending Case Discussed With: GAMAL AARON,MERON Primary Care Physician: PATIENT HAS NO PRIMARY CARE DR Patient sees these Specialists NONE Level of Patient Care: [facility] Consults Needed: Consulting Physician: NONE Attending MD Review Statement Attending Statement Attending MD Statement: examined this patient, reviewed EMR data (avail), discussed with nursing, amended to note Attending Assessment/Plan: The patient was seen and examined earlier today.
--- NOTE | 2016-09-03 15:03 | SOCIAL WORKER PROG NOTE PSYCH ---
Social Work Progress Note Progress Note Zandra has been quiet today, sitting to herself most of the day. She said she had a hard time falling asleep last night. Denies any auditory hallucinations today. Told me that she had been hearing voices for about a year and that she has taken medications in the past, but stopped taking them because she didn't feel that she needed them. She denies other symptoms of depression or anxiety. States her mood is good. She thinks that the voices are gone today, because she took the medication. She feels ready to leave the hospital and doesn't feel that she will need to be here past tomorrow. She lives at home with her and 3 children ages 9,14,& 15. I told her that I would like to have her in for a meeting. She asked why? So I explained that it was a meeting to support her and discuss her concerns and that we do this for all patients. She agreed. Zandra is of Arabic decent, she moved to the with [place] family in 1996. She shared that the only reason she came to the hospital is because her Mom wanted her to come. I asked what her Mother's concerns were? She told me that her Mom was worried about the stress that the voices were causing her. When asked what the voices say? She said statements like "Zandra is good, Zandra is bad". I talked to her about IOP. Initially she said she didn't think she would need to go. After more discussion she changed her mind and said it would be ok. I got the impression that she was agreeing just to leave the hospital sooner. I don't know what her committement is to treatment at this time. I explained that she can't take medication like headache medicine and only take it when she experiences the voices. Zandra's and I spoke. He will come in for a meeting tomorrow at 10: 30am. He was concerned that she didn't call him yet today. He was upset over the rules regarding the phone use. I explained that groups are part of treatment here and the phone is available when groups aren't in session. He asked me to remind her, because he didn't think she was aware. I let her know when the family meeting was planned for and told her that her seemed to want to hear from her.
--- NOTE | 2016-09-03 15:08 | SOCIAL WORKER TX PLAN PSYCH ---
Treatment Plan - Please Document: - Evidence that there is ongoing collaboration between - the patient and the interdisciplinary team, - including the patient's active participation and - responsibility for engaging in the treatment regimen, - and that the treatment plan is individualized and - relevant to the patient's conditions. - Treatment plan should reflect documentation indicating - that all active therapeutic efforts are included. Strengths/Capabilities: no prior psych hx/ mother of 3/supportive family Patient Identified Trmt Goals: "I don't want to hear voices" Discharge Plan: Raj[facility] GUTIÉRREZ Problem/Goals #1 Problem #1: psychosis Goal (Short Term): Patient will consider medications to help with her auditory hallucinations. Goal (Half-Way): Patient will stay on medications and in treatment in order to remain stable. Interventions: patient will be offered medication management with the FARM EQUIPMENT OPERATOR, groups on symptom management, coping skills, goals groups, focus groups, relaxation. Energy Project Engineer will assess symptoms daily, discuss pros and cons to medication compliance. Energy Project Engineer will hold family meeting and plan for aftercare. DSM5/PS Stressors/Medical Prob Diagnosis' (DSM 5, Stressors, Medical): F23 Brief Psychosis D/O R/O Schizoaffective D/O Current GAF: 24 Treatment Team - Responsibilities of members of the treatment team include: - Medication Management- MD or FARM EQUIPMENT OPERATOR - Medication Administration and Monitoring- Nurse - Group Therapy- Occupational Therapist - 1:1 Therapy,Disch Planning,family involvement-Energy Project Engineer
[2016-09-03 16:09] VITALS: BP 105/71
[2016-09-03 19:44] VITALS: BP 116/74
--- NOTE | 2016-09-03 21:08 | NUR ---
PT IS ISOLATIVE AND WITHDRAWN, STAYING IN PT ROOM ALL DAY. PT DID RECEIVE A VISIT FROM FAMILY, WHICH BROUGHT HER INTO MILIEU AND SEEMED TO MAKE HER HAPPY. MOOD IS STABLE, AFFECT IS SLIGHTLY CONSTRICTED, AT TIMES PRESENTING EUTHYMIC TO FULL RANGE, COMMUNICATION IS NORMAL, BUT SPARSE, AND APPETITE IS NORMAL. PT DENIES SI AT THIS TIME.
[2016-09-04 07:39] VITALS: BP 104/74
--- NOTE | 2016-09-04 10:42 | CP SOUTH PROGRESS NOTE PSYCH ---
See Addendum Psych (Inpt) Progress Note Progress Note Include the following elements, when applicable: Involvement in the active treatment of the patient with behavioral observations of the patient and the patient's response to the treatment. Review of the ongoing treatment process in the context of the treatment plan. Indication of how multi-disciplinary staff members are carrying out the treatment plan. Plans for future interventions and recommendations for revision of the treatment plan. Liaison with other physicians/providers. Progress Note: [I discussed this patient's progress to date, current mental status, treatment process in the context of the treatment plan, and discharge planning with staff/ team in the daily morning inpatient team meeting. I also met with the patient myself in individual session.] SUBJECTIVE: "I feel good. Much less voices." OBJECTIVE: Laboratory Tests 09/02/16 1326: CBC w Diff NO MAN DIFF REQ, RBC 3.87 L, MCV 83.4, MCH 27.3, RDW 13.9, MPV 8.3, Gran % 53.2, Lymphocytes % 34.1, Monocytes % 10.0 H, Eosinophils % 2.0, Basophils % 0.7, Absolute Granulocytes 2.0, Absolute Lymphocytes 1.3, Absolute Monocytes 0.4, Absolute Eosinophils 0.1, Absolute Basophils 0, PUBS MCHC 32.7 L 09/02/16 1150: Anion Gap 14, Estimated GFR > 60, BUN/Creatinine Ratio 15.7, Glucose 67, Hemoglobin A1c 5.2, Calcium 9.3, Total Bilirubin 0.5, AST 20, ALT 17, Alkaline Phosphatase 41, Total Protein 7.5, Albumin 4.5, Globulin 3.0, Albumin/Globulin Ratio 1.5, Triglycerides 41, Cholesterol 162, LDL Cholesterol, Calc 90, HDL Cholesterol 64 H, Cholesterol/HDL Ratio 3, TSH &T3 &Free T4 Intrp 1.040 09/02/16 1108: Urine Opiates Screen < 100.00, Methadone Screen 51, Barbiturate Screen < 60, Ur Phencyclidine Scrn < 6.00, Amphetamines Screen < 100, U Benzodiazepines Scrn < 85, Urine Cocaine Screen < 50, Urine Cannabis Screen < 5.00, Urine Color YEL, Urine Clarity HAZY H, Urine pH 6.0, Ur Specific [place] >= 1.030, Urine Protein NEG, Urine Ketones NEG, Urine Nitrite POS H, Urine Bilirubin NEG, Urine Urobilinogen 0.2, Ur Leukocyte Esterase NEG, Ur Microscopic SEDIMENT EXAMINED, Urine RBC 3-5, Urine WBC 1-3 H, Ur Epithelial Cells MOD H, Urine Crystals 3+ CA OX H, Urine Bacteria MANY H, Urine Mucus MANY H, Urine Hemoglobin MOD H, Urine Glucose NEG, Urine Test NEGATIVE Microbiology 09/02 1108 URINE ROUT: Urine Culture - COMP KLEBSIELLA PNEUMONIAE Current Medications Sig/Rancho Start time Last Medication Dose Route Stop Time Status Admin Acetaminophen 650 MG Q6P PRN 09/02 1600 AC PO Al Hydroxide/Mg 30 ML Q4-6 PRN PRN 09/02 1600 AC Hydroxide PO Gabapentin 300 MG Q6P PRN 09/02 1600 AC PO Magnesium Hydroxide 30 ML AT BEDTIME PRN 09/02 1600 AC PO Risperidone 0.5 MG 0800 09/04 0800 AC PO Risperidone 1 MG AT BEDTIME 09/03 2200 AC 09/03 PO 2203 Risperidone 1 MG BID 09/02 1552 DC 09/03 PO 1001 Trazodone HCl 50 MG AT BEDTIME NEED.. 09/02 1600 AC PO Vital Signs Date Time Temp Pulse Resp B/P Pulse O2 O2 Flow FiO2 Ox Delivery Rate 09/04 0739 96.5 104 104/74 09/03 1944 96.6 83 116/74 03 1609 83 105/71 03 1217 73 108/68 ASSESSMENT: Chart, progress notes, labs, VS, and medication list were reviewed. Urine culture (+) Klebsiella. Patient denied genitourinary/uti sx. Nursing spoke to customer service dispatcher Dr. Christina regarding (+) urine culture who will evaulate the need for tx. Met with patient this morning with her and June Merrill LCSW, for a family meeting. The patient's treatment progress to date, psychiatric history, medication regimen, level of safety, and discharge planning were reviewed with the patient. The patient's reported onset of AH since last year. He reported that in addition to intermittent AH, the patient also experienced poor eating habits, weight loss, and insomnia. He reported concerns about the patient remaining on prescribed Risperdal post-discharge, given past history of medication nonadherence and paranoia over medications. Risperdal BOYLE was reviewed at length with the patient and her . Expressed to patient that BOYLE could be administered Q2 weeks IM and would eliminate the need for her to remember taking medication daily. Patient resisted this option and reported she would be fine taking the medications by mouth. The patient was agreeable to having her administer prescribed Risperdal to her twice daily and assist with managing her medications. The patient's was also in favor of this plan. It was expressed to the patient and her that during IOP treatment course, if patient changed her mind she could be switched to Risperdal BOYLE. The patient and her both verbalized understanding of this. The patient was also agreeable to having her involved in her treatment during IOP. At the end of family meeting, nursing staff and nursing professor came into the meeting inform us that Zandra's Mother and Brother were outside asking to come in for the meeting. Both the patient and reported that wasn't necessary as we were ending the meeting. On encounter today, the patient presented more alert than yesterday and was oriented to person, place and time. Affect was constricted. Mood was "good." Eye contact was appropriate. She reported improved sleep and energy level. She reported getting her appetite back, and eating this morning. She reported AH were much quieter like "whispers" since starting Risperdal. She denied VH. Thought process was linear and goal-directed. Thought content was appropriate. There was no evidence of overt paranoia or delusions. Cognition was grossly intact. She denied passive and active suicidal ideation, plans and intent. She denied homicidal ideation. She reported tolerating medications well and denied untoward medications effects. There was no evidence of movement disorder. AIMS=0. Patient agreeable to continuing medication. PLAN: 1. Continue monitoring the patient on unit for safety, mood and AH/VH. 2. Continue Risperdal 0.5mg QAM and 1mg QHS for AH. Consider increasing AM Risperdal to 1mg over the weekend if continued AH. 3. Encourage participation in milieu activities. 4. Cover Mat Machine Operator Dr. Christina to f/u on (+) urine culture. 5. Likely discharge Wednesday with f/u at [facility].
--- NOTE | 2016-09-04 11:03 | SOCIAL WORKER PROG NOTE PSYCH ---
Social Work Progress Note Progress Note Zandra's came in for a family meeting today. He was very concerned and was a strong advocate in making sure that she was getting all the follow up and medical work up that she needs. Requesting and MRI and CAT Scan of her head. He wants to make sure that there is nothing causing voices medically. He believes she may have had an MRI at [place] a few months back. Agnes Whipple APRN told him she will look at the record and speak with the hospitalist if another one is needed. He confirmed Zandra's report that she has been experiencing voices for about a year on and off. He conveyed how difficult it was to get her to come in for treatment and wants to make sure that she is well before leaving. We talked alot about her medication compliance. The last time she was given medication she dumped them down the toilet because she didn't feel they were needed. She acknowledges that since her stay here the medication given has helped. She still seems to have some thoughts about when the voices stop she no longer needs the meds. We explained that it doesn't work like that and that she will need to remain consistent on the meds to prevent the voices from returning. Talked about an injection versus pills. She was informed by Agnes that she could opt to receive a 2 week injection of Risperdal if that was easier for her to remember. She ultimately decided not to receive the injection right now, but said she would consider it if the pills were a problem for her. She was strongly encouraged to think about it. Zandra's talked about how he wanted to take over as POA for her or conservator so that she didn't have any rights to refuse treatment and wants to be able to sign her in and out of the hospital. It was explained that if he went for these legal rights, it doesn 't mean that he can get her into and out of the hospital. Agnes also informed him that she probably would not meet criteria for conservatorship, as she is not a danger to herself, others, or gravely disabled right now. Discussed continued treatment at the IOP program and how she can continue to get the help and support she needs. Informed her that if all is well we will plan for discharge on Wednesday and that I would schedule an intake for the same day as discharge. Zandra seemed fine with the idea of staying over the weekend. I think she is starting to feel more comfortable here. She denies voices today. States her mood is good. Appetite is slowly improving and that she slept well last night. Her thought that she is starting to look better. At the end of the meeting, nursing came to the room to inform us that Zandra's Mother and Brother were outside asking to come in for the meeting. Both patient and didn't feel that was necessary as we were ending the meeting. Zandra asked me later if I could meet with her Mom. I told her we would need to ensure there is a release, but that I could not do it today and would be happy to meet with her and her Mom on Wednesday morning at 10:30am. IOP intake is tentatively sheduled for Wednesday at 12:45pm.
--- NOTE | 2016-09-04 11:18 | NUR ---
PT IS STABLE WITH EUTHYMIC AFFECT. PT IS ATTENDING GROUPS AND INTERACTING WITH PEERS/STAFF. PT HAD A FAMILY MEETING TODAY WITH HER . PT'S MOTHER/BROTHER ATTEMPTED TO COME ONTO THE UNIT AND WERE DEMANDING TO SPEAK WITH DOCTOR. THERE WAS NO RELEASE OF INFO FROM THE PT TO DISCUSS WITH MOTHER/BROTHER. SECURITY WAS CALLED DOWN TO SPEAK WITH THE MOTHER/BROTHER AFTER THEY REFUSED TO LEAVE. PT EVENTUALLY SIGNED A KT AND FARRAH FROST WILL SCHEDULE A FAMILY MEETING WITH MOTHER/BROTHER FOR WEDNESDAY. VS ARE STABLE AND DENIES ANY SI/HI TO THIS MHW.
--- NOTE | 2016-09-04 11:33 | NUR ---
PT IS CALM AND COOPERATIVE AT THIS TIME. SHE HAD A FAMILY MEETING TODAY AND IS TENTATIVELY SCHEDULED FOR D/C TO [facility] [place] WEDNESDAY. SHE DENIED SUICIDAL THOUGHTS WHEN ASKED.U/C WILL BE REPORTED TO DR WEAVER. PT DENIES ANY URINARY SYMPTOMS AND IS AFEBRILE
--- NOTE | 2016-09-04 11:46 | NUR ---
DR WEAVER RETURNED CALL AND WILL REVIEW U/C
[2016-09-04 12:25] VITALS: BP 107/67
[2016-09-04 16:10] VITALS: BP 113/71
--- NOTE | 2016-09-04 17:40 | PN- Att Addend ---
Attending Addendum Attending Brief Note Called for positive urine culture - Klebsiella > 100K. Was sent from ED. Urinalysis had only 1-3 WBC and the patient denies any urinary symptoms. #Asymptomatic Bacteruria- discussed with REGIONAL INTERMODAL TRUCK DRIVER. Unlikely to represent infection. Plan: No treatment elected.
[2016-09-04 19:33] VITALS: BP 104/73
--- NOTE | 2016-09-04 22:16 | NUR ---
PT IS CALM, COOPERATIVE WITH STAFF AND PEERS, AND COMPLIANT WITH UNIT RULES. PT APPEARS IN MILIEU FOR PERIODS OF TIME, BUT TENDS TO BE WITHDRAWN WHILE IN POPULATION, AND OFTEN ISOLATES IN PT ROOM. MOOD IS STABLE, AFFECT IS EUTHYMIC, COMMUNICATION IS NORMAL, AND APPETITE IS NORMAL. PT DENIES SI AT THIS TIME.
[2016-09-05 07:39] VITALS: BP 102/56
[2016-09-05 12:11] VITALS: BP 104/67
--- NOTE | 2016-09-05 14:38 | NUR ---
has been sitting in lounge, minimal interactions with peers or staff. did not go to group. Mood is stable, contricted affect. denied thoughts of self harm when asked.
[2016-09-05 16:02] VITALS: BP 112/65
--- NOTE | 2016-09-05 17:50 | CP SOUTH PROGRESS NOTE PSYCH ---
Psych (Inpt) Progress Note Progress Note The patient was seen for follow-up for unspecified psychotic disorder. She was seen individually and discussed with the nursing staff. According to the nursing staff she seems less internally preoccupied, more outside of her room, continuing to be mostly on her own. She wanted her mother to be present during the interview. They both expressed concern relative to brain imaging, again mentioning MRIs and CT scans, in attempt to find an acceptable explanation for the episode of auditory hallucinations which led to her hospitalization. The patient reports bouts of anxiety, mostly when hearing about other people's tribulations, described as a tightness in her chest and a pit in her stomach. She was not aware that she has medication prescribed as needed for anxiety ( Neurontin) and is agreeable to take that for relief. The patient says that it takes her a long time to fall asleep, was not aware that she had trazodone as needed for insomnia, she is willing to take that. The patient denies suicidal/homicidal ideation, auditory/visual hallucinations, or side effects from the medications. The patient understands the risks/benefits/side effects of the medication and is agreeable to continue taking them. The patient has good insight and judgment and is motivated to follow-up psychiatric treatment at the mental health [facility] at [facility]. She has a discharge set date for Wednesday with an intake at [facility] in the same day. The patient is agreeable with the plan.
[2016-09-05 19:04] VITALS: BP 105/66
--- NOTE | 2016-09-05 20:25 | NUR ---
PT IS STABLE AND VERY EUTHYMIC. HAS BEEN OUT IN THE COMMUNITY ONLY WHEN FAMILY IS VISITING-- OTHERWISE PT HAS BEEN IN HER ROOM SLEEPING ENTIRE EVENING SHIFT. WITHDRAWN AND ISOLATIVE. PT WILL ENGAGE WHEN STAFF TALKS TO HER. PLESANT AND COOPERATIVE. CALM/COMPLIANT. VS ARE STABLE AND PT DENIES ANY SI/HI TO THIS MHW.
--- NOTE | 2016-09-06 06:13 | NUR ---
PT APPEARED TO SLEEP. PT SPENT [phone] IN HER ROOM, WANTED HS MEDS EARLY, BUT WAS ENCOURAGED TO ATTEND WRAP UP, WHICH SHE REFUSED.
[2016-09-06 07:31] VITALS: BP 119/71
[2016-09-06 12:15] VITALS: BP 114/74
--- NOTE | 2016-09-06 13:49 | NUR ---
Pt is on the periphery on the unit, no issues or complaints reported or observed, is quiet and withdrawn a majority of the day thus far however did attend groups, medication compliant, pleasant and respectful when staff engages with her, did share some future oriented goals in focus group and the desire to focus on her mental health.
[2016-09-06 16:00] VITALS: BP 113/69
[2016-09-06 19:21] VITALS: BP 116/73
--- NOTE | 2016-09-06 20:10 | CP SOUTH PROGRESS NOTE PSYCH ---
Psych (Inpt) Progress Note Progress Note The patient was seen for follow-up for unspecified psychotic disorder. We reviewed progress reports up to date. The patient was discussed with unit staff and interviewed 1:1. She is apetite, very pale, female, reportedly of [place] culture. Her speech is very carefully selected, slightly accented, somewhat monotone, goal-directed and well articulated. She states "I'm feeling better". She expresses interest in the result for urine culture. She is questioning why treatment was not offered for it. She seems to understand the rationale for not treating asymptomatic bacteriuria. She is also very focused on an MRI or CT scan hoping to find out "what is wrong in my brain". The patient denies suicidal/homicidal ideation, auditory/visual hallucinations, or side effects from the medications. The patient understands the risks/benefits/side effects of the medication and is agreeable to continue taking them. We will continue present management, observation, symptom monitoring, and discharge planning. The patient will be followed up daily by the unit psychiatrist.
--- NOTE | 2016-09-06 21:23 | NUR ---
PT IS STABLE WITH COSNTRICTED AFFECT. PT IS WITHDRAWN AND ISOLATIVE. ONLY OUT OF ROOM WHEN FAMILY IS VISITING. DOES NOT ENGAGE WITH STAFF/PEERS UNLESS THEY FIRST ENGAGE HER. OTHERWISE VERY POLITE AND APPROPRIATE TO THE UNIT. DENIES ANY SI/HI TO THIS MHW. VS ARE STABLE.
--- NOTE | 2016-09-07 05:40 | NUR ---
PATIENT SLEPT ALL NIGHT.
[2016-09-07 07:36] VITALS: BP 107/65
[2016-09-07] MEDS ORDERED: RISPERDAL1 M1 PO (10:09)
--- NOTE | 2016-09-07 10:15 | NUR ---
PT IS TENETATIVELY SCHEDULED FOR D/C TO [facility] [place] TODAY. SHE HAS A FAMILY MEETING TODAY AND EXPECTS TO LEAVE AFTER THE MEETING. PT AGREES TO FOLLOW UP WITH IOP. SHE REPORTS AND DEMONSTRATES IMPROVEMENT IN HER MOOD AND ABILITY TO FUNCTION. WHEN ASKED SHE DENIES ANY SUICIDAL THOUGHTS AND SHE DENIES AH AT THIS TIME. HER CONVERSATION AND BEHAVIOR ARE CALM AND COOPERATIVE. SHE IS COMPLIANT WITH HER MED REGIME. PT IS GIVEN EDUCATION ON MANAGING PSYCHOSIS AND ON SUICIDE PREVENTION
[2016-09-07] MEDS ORDERED: TRAZODONE HCL50 M1 PO (10:22)
[2016-09-07] MEDS ORDERED: GABAPENTIN300 M2 PO (10:22)
--- NOTE | 2016-09-07 10:27 | CP SOUTH PROGRESS NOTE PSYCH ---
Psych (Inpt) Progress Note Progress Note Include the following elements, when applicable: Involvement in the active treatment of the patient with behavioral observations of the patient and the patient's response to the treatment. Review of the ongoing treatment process in the context of the treatment plan. Indication of how multi-disciplinary staff members are carrying out the treatment plan. Plans for future interventions and recommendations for revision of the treatment plan. Liaison with other physicians/providers. Progress Note: [I discussed this patient's progress to date, current mental status, treatment process in the context of the treatment plan, and discharge planning with staff/ team in the daily morning inpatient team meeting. I also met with the patient myself in individual session.] SUBJECTIVE: "I feel better." OBJECTIVE: Current Medications Sig/Rancho Start time Last Medication Dose Route Stop Time Status Admin Acetaminophen 650 MG Q6P PRN 09/02 1600 AC PO Al Hydroxide/Mg 30 ML Q4-6 PRN PRN 09/02 1600 AC Hydroxide PO Gabapentin 300 MG Q8P PRN 09/07 1045 UNVr PO Gabapentin 300 MG Q6P PRN 09/07 1030 DC PO Gabapentin 300 MG Q6P PRN 09/02 1600 DC PO Magnesium Hydroxide 30 ML AT BEDTIME PRN 09/02 1600 AC PO Risperidone 0.5 MG 0800 09/04 0800 AC 09/07 PO 0703 Risperidone 1 MG AT BEDTIME 09/03 2200 AC /05 PO 2124 Trazodone HCl 50 MG AT BEDTIME NEED.. 09/02 1600 AC /05 PO 2124 Vital Signs Date Time Temp Pulse Resp B/P Pulse O2 O2 Flow FiO2 Ox Delivery Rate 09/07 0736 98.3 92 107/65 09/06 1921 96.9 81 116/73 09/06 1600 96 113/69 03 1215 81 114/74 ASSESSMENT: Met with patient today on the date of discharge. She presented alert and oriented to person, place, time and situation. Speech was normal in rate, tone and volume. Eye contact was appropriate. Demeanor was calm and polite. She reported her mood as "better." Affect was mostly constricted. She reported her appetite was improved. She reported initial difficulty falling asleep last night which was helped by Trazodone 50mg prn. She reported anxiety of 4/10 (10 being the worst) and anxiety of 0/10 (10 being the worst). She inquired about obtaining a prescription post-discharge for anxiety, although she hadn't utilized scheduled Gabapentin prn while on unit. Educated patient on the risks/ benefit/SE profiles of Gabapentin. Patient verbalized understanding of education and was agreeable to trial post-discharge. Told patient I would provide prescription of Gabapentin for her on discharge. She denied feeling hopeless, helpless, worthless and guilty. She denied passive and active suicidal ideation, plans and intent. She denied homicidal ideation. She stated and also believed she will not harm herself or others. She identified protective factors of my "kids," "my " and "my mother." She initially reported resolution of auditory and visual hallucinations, and denied the presence of auditory and visual hallucinations today. However, during today's family meeting with the patient, her parents, brother and , she told her family she experienced visual hallucinations of a human shadow and snakes over this past weekend. Patient denied these symptoms at present or previously to this commercial lines underwriter or appraiser art. Patient denied AVH at present. Thought process was linear and goal-directed. Insight and judgement appeared improved, and patient expressed willingness to continue psychiatric medications post- discharge. She was agreeable to following up for intake at [facility] today and to continue treatment there thenafter for further medication and symptom management. She was also agreeable to following up with scheduled PCP appointment with Dr. Peters of [facility] for further information on a neurology referral. There was no evidence of paranoia or delusions. Cognition was grossly intact. Patient reported tolerating all medications well and denied untoward medication effects. She reported feeling ready and safe for discharge. PLAN: 1. Discharge today home to family. 2. F/u at [facility] today at 12:45PM for intake. 3. F/u with initial PCP appointment on 09/16/[address] Peters of [facility] for neurological referral and request for outpatient brain imaging as was not medically indicated inpatient. Patient verbalized understanding. 4. All discharge prescriptions were printed, reviewed with the patient and provided to patient on discharge. 5. In the event of an emergency, call 911/go to nearest emergency department. Patient verbalized understanding of instructions.
--- NOTE | 2016-09-07 10:50 | DISCHARGE SUMMARY REPORT-PSYCH ---
Visit Information Visit Dates/Diagnosis' Admission Date: 09/02/16 Discharge Date: 09/07/16 Reason for Admission: Auditory (non-command) and visual hallucinations/Paranoia Psy Discharge Primary Diag: Unspecified psychosis Psy Discharge Secondary Diag: R/O Schizoaffective disorder Hospital Course Significant Lab Findings: Lab HDL Cholesterol 64 mg/dL H 09/02/16 1150 Ur Epithelial Cells MOD H 09/02/16 1108 Urine Bacteria MANY H 09/02/16 1108 Urine Hemoglobin MOD H 09/02/16 1108 Urine Mucus MANY H 09/02/16 1108 Urine Nitrite POS H 09/02/16 1108 Urine WBC 1-3 /HPF H 09/02/16 1108 Micro URINE CULTURE Abnormal COMP 09/02/16 1108 KLEBSIELLA PNEUMONIAE Course Complications: None. Consultations: The patient was seen for admission history and physical by assorter Dr. Ash Christina. During this evaluation the patient was noted to have an unremarkable neurological exam. Please see his note for additional information. The patient was again consulted by Dr. Marc Christina for follow-up regarding a urine culture that resulted positive for Klebsiella Pnuemoniae. Patient denied urinary symptoms. Per Dr. Christina, culture result unlikely represented an infection and no treatment was elected. Allergies: Coded Allergies: No Known Allergies (10/16/15) Hospital Course/TX Response: The patient was monitored on the unit for safety, mood, suicidal ideation and auditory and visual hallucinations. She participated in multimodal treatments on the unit. She was started on Risperdal 1mg twice daily for auditory and visual hallucinations, which was shortly after decreased to 0.5mg every morning and 1 mg at bedtime due to noticable daytime sedation. Gabapentin 300mg three times daily as needed was started for anxiety, however during the hospital course was not utilized by the patient. Trazodone 50mg was started as needed at bedtime for insomnia. The patient tolerated medications well and denied untoward medication effects. During the hospital course, the patient's mood and affect improved. She consistently denied suicidal and homicidal ideation. She reported stabilization of auditory and visual hallucinations on Risperdal. Paranoia remitted. Two family meetings were held during hospitalization. The first, with the patient, her , June Merrill, KELLY, and this staff writer. The patient's treatment progress, psychiatric history, medication regimen, level of safety, and discharge planning were reviewed. The patient's reported onset of auditory and visual hallucinations since last year. He reported that in addition to intermittent hallucinations, the patient also experienced poor eating habits, weight loss, and insomnia. He reported concerns about the patient remaining on prescribed Risperdal post-discharge, given her past history of medication nonadherence and paranoia over medications. Risperdal BOYLE was reviewed at length with the patient and her . Expressed to patient that BOYLE could be administered Q2 weeks IM and would eliminate the need for her to remember taking medication daily. Patient resisted this option and reported she would be fine taking the tablet formulation of Risperdal. The patient was agreeable to having her administer prescribed medication and assist with managing her medication. The patient's was also in favor of this plan. It was expressed to the patient and her that during IOP treatment course, if patient changed her mind she could be switched to Risperdal BOYLE. The patient and her both verbalized understanding of this. The patient was also agreeable to having her involved in her treatment during IOP. The second family meeting was held with the patient, her parents, her and brother with June Merrill LCSW, and this staff writer. The family's focus of this meeting was for the patient to obtain brain imaging to rule out any underlying neurological causes for present psychiatric symptoms. It was explained to the family and the patient, that given the presentation of her symptoms have been ongoing for approx 1 year and have gone unchanged in the absence of head trauma; a normal neurological exam on admission history and physical; and the patient's positive response to psychiatric medications it was deemed medically unecessary to have brain imaging completed on an inpatient level of care. Per chart history , the patient had undergone a brain CT on 10/16/15 that showed no evidence of acute intracranial pathology. The patient's family's request was reviewed at length with the [facility] medical team, and it was concluded that brain imaging could be completed on an outpatient basis. This staff writer attempted to refer the patient to [facility] in [place], [place] as they accept the patient's insurance , however, this refer was required by a primary care physician. The patient did not have a primary care physician, and thus an appointment was scheduled with the patient's permission for her to follow-up with Dr. Peters at [facility] on 09/16/16 at 10AM. The patient verbalized understanding of appointment and was agreeable to attend outpatient to discuss referral to neurology and further brain imaging. On the date of discharge, 09/07/16, the patient presented alert and oriented to person, place, time and situation. Speech was normal in rate, tone and volume. Eye contact was appropriate. Demeanor was calm and polite. She reported her mood as "better." Affect was mostly constricted. She reported her appetite was improved. She reported initial difficulty falling asleep last night which was helped by Trazodone 50mg prn. She reported anxiety of 4/10 (10 being the worst) and depression of 0/10 (10 being the worst). She inquired about obtaining a prescription post-discharge for anxiety, although she hadn't utilized prescribed Gabapentin prn while on unit. Educated patient on the risks/benefit/SE profiles of Gabapentin. Patient verbalized understanding of education and was agreeable to trial post-discharge. Told patient I would provide prescription of Gabapentin for her on discharge. The patient denied feeling hopeless, helpless, worthless and guilty. She denied passive and active suicidal ideation, plans and intent. She denied homicidal ideation. She stated and also believed she will not harm herself or others. She identified protective factors of my "kids," "my " and "my mother." She initially reported resolution of auditory and visual hallucinations, and denied the presence of auditory and visual hallucinations today. However, during today' s family meeting with the patient, her parents, brother and , she told her family she experienced visual hallucinations of a human shadow and snakes over this past weekend. Patient denied these symptoms at present or previously to this staff writer and outreach rep. Thought process was linear and goal- directed. Insight and judgement appeared improved, and patient expressed willingness to continue psychiatric medications post-discharge. She was agreeable to following up for intake at [facility] today and to continue treatment there thenafter for further medication and symptom management. She was also agreeable to following up with scheduled PCP appointment with Dr. Peters of [facility] for further information on a neurology referral. There was no evidence of paranoia or delusions. Cognition was grossly intact. Patient reported tolerating all medications well and denied untoward medication effects. She reported feeling ready and safe for discharge. Discharge HBIPS - Tobacco Use Treatment Offered Post DC Medications Offered: NA-No Tob Use >30 days Post DC Tobacco Treatment Plan: NA-No Tobacco use >30days - EtOH/Drug Use D/O Treatment Offered Post DC Medications Offered: NA-No EtOH/Drug Use D/O Post DC EtOH/SubAbuse TX Plan: NA-No EtOH/Drug Use D/O Metabolic Screening - Screen if on a Neuroleptic Medication - Metabolic screening should include: - Blood Pressure, BMI, Glucose or Hgb A1c, & a - Lipid profile from within the past 365 days. Metabolic Screening () Not Applicable, patient not on a neuroleptic. OR ([X]) Patient on a neuroleptic(s) . Enter below results for Glucose or Hemoglobin A1C, and lipid panel if obtained during the last 365 days. BMI: 21.000 Blood Pressure: 107/65 Laboratory Results (If applicable): Lab Cholesterol 162 MG/DL 09/02/16 1150 Cholesterol/HDL Ratio 3 % 09/02/16 1150 Glucose 67 mg/dL 09/02/16 1150 HDL Cholesterol 64 mg/dL H 09/02/16 1150 LDL Cholesterol, Calc 90 mg/dL 09/02/16 1150 Triglycerides 41 mg/dL 09/02/16 1150 Discharge Instructions General Discharge Information Discharge Medications: Discharge Medications- (Dose, route, freq, indication): START taking these NEW Home Medications: Risperidone Dose: ORAL, SEE INSTRUCTIONS Qty: 21 Printed (Risperdal) 1 MG 1 Tablet for clear Refills: 0 TABLET thoughts/hallucinations Take 1/2 tablet (0.5mg) tablet by mouth every morning and 1 tablet (1mg) at bedtime. Last Taken:09/07/16 Time:O7OO Gabapentin Dose: ORAL, EVERY 8 HOURS Qty: 42 Printed (Gabapentin) 300 MG 300 Milligram NEEDED as needed for Refills: 0 CAPSULE anxiety Take 1 capsule (300mg) by mouth every 8 hours as needed for anxiety. Trazodone HCl Dose: ORAL, AT BEDTIME Qty: 14 Printed (Trazodone HCl) 50 50 Milligram NEEDED as needed for Refills: 0 MG TABLET INSOMNIA Take 1 tablet (50mg) by mouth at bedtime as needed for insomnia. Last Taken:09/06/16 Time:2120 Multiple Neuroleptics: ([X]) Not Applicable OR Document below three failed attempts at monotherapy, or a plan to taper to monotherapy, or augmentation of Clozapine. () Patient's Diet: Regular. Patient's Activity: No restrictions. DC Disposition: The patient to discharge to home and family. Recommendations: The patient was advised to please take medications as prescribed. She was advised to follow-up with scheduled outpatient appointments (please see in below referral section). She was advised to call 911/go to nearest emergency department in the event of an emergency. * Revisit Risperdal BOYLE during IOP treatment course if the patient shows nonadherence to prescribed oral Risperdal. This was reviewed at length with the patient and her during inpatient family meetings. * During IOP course please follow-up with patient's PCP referral and provide assistance with outpatient neurology referral/brain imaging. Referred To: Intensive Outpatient Psychiatry Service Date: 09/07/16 [facility] [place] [address] T: *IOP intake scheduled on 09/07/16 at 12:45pm [facility] [address] [address] [facility] [place] [address] T: *Appointment scheduled with PCP Dr. Peters on 09/16/16 at 10am. Copies To: [facility]; [facility]
--- NOTE | 2016-09-07 12:08 | SOCIAL WORKER PROG NOTE PSYCH ---
Social Work Progress Note Progress Note Zandra's arrived to the unit around 9am, asking about a meeting planned for today. Zandra said she had planned the meeting with her Mom for 11am. Nursing informed the to return at 11am. Zandra's family (Mother, Father , Brother and ) came in for the meeting. Agnes Whipple APRN was in attendance at the meeting. Zandra reports doing much better and feels the medication is working. Although, did report to family over the weekend that she woke up from a bad dream and saw what she thinks was a human shadow at the window. She also said that she saw snakes. This is the first time she reported a visual hallucination. The family meeting was intense, due to the Father's repeated request for her to have a scan of her brain before she left the hospital. Agnes Informed them that it was not medically necessary for her to have an MRI and that's why it was not completed. The Father insisted that she had one 11 months ago and that it should be repeated other than just giving her medications. Mom had difficulty with speaking her thoughts in Y[place], so the Brother was also assisting in translation. Agnes did offer to set up a neurology appt. for her on an outpatient basis. Eventually family was satisfied with that response and left the unit. plans to walk Zandra over to her [facility] intake appt. at 12:45pm today. Unfortunately after Agnes's attempts to get an appt. she found out that an appt. could only be made after a PCP refers. This was explained to Zandra by Agnes.
== END 2016-09-07 12:31 | DRG 751 ==
LOC: ENRESERVDT → ENRESERVTM → ERH 10:33 → CP SOUTH 16:06 → ERHI 16:06 → ENPENDDIS 16:06 → EDBEDREQ 16:16 → CP SOUTH 17:29
PROVIDERS: Physician Assistant; ADMIT Psychiatry & Neurology Psychiatry
DX: F29 Unspecified psychosis not due to a substance or known physiological condition (principal)
CPT/HCPCS: 80307; 81001; 81025; 87086; 90834